=== PATIENT | male | born 1935 | race Caucasian/White ===

== ENCOUNTER 2017-06-14 10:34 | Emergency (ER) | payer OTHER, MEDICARE ==
--- NOTE | ~2017-06-14 | CT71 ---
[facility] A Service of [facility] RADIOLOGY TEXT RESULTS PATIENT: MADDY ARVIZU LOCATION: [facility] : 39 UNIT #: [id number] AGE: [address]: Georgia Hayes SEX: M ORDER DR: [id number] [facility]. [place], [place] [address] [id number] E MR#: [id number] #: [id number] NAME: MADDY ARVIZU : 1935 SEX: M STUDY DATE/TIME: 06/14/2017 11:24 UNIT: [facility] ROOM: STUDY DESCRIPTION: CT Head Wo Contrast Attending Physician: Georgia Hayes P.A.-C. Ordering Physician: Georgia Hayes P.A.-C. Primary Care Physician: No Primary Care Physician MEDICAL IMAGING REPORT This report is preliminary unless electronic signature is present EXAM CT head without contrast INDICATIONS Head injury today. Laceration over right eye, pain right forehead. TECHNIQUE CT head performed without contrast. This CT exam was performed with one or more of the following radiation dose reduction techniques: automatic exposure control, adjustment of mA and/or kV according to patient size, and iterative reconstruction. COMPARISON No comparisons. FINDINGS There is generalized age-appropriate volume loss. There is no hydrocephalus. There is no focal mass lesion. There is no intracranial hemorrhage. There is no acute cortical based infarction. Soft tissue swelling overlying the right orbit. Paranasal sinuses are clear. No acute osseous abnormality. IMPRESSION 1. No acute intracranial abnormality. 2. Small hematoma overlying the right orbit. Dictated by... Chinmay Scanlon M.D. THIS IS AN ELECTRONICALLY VERIFIED REPORT Chinmay Scanlon M.D. at 06/16/2017 7:36 AM ELZBIETA/halley [facility] A Service [facility] RADIOLOGY TEXT RESULTS PATIENT: MADDY ARVIZU LOCATION: [facility] : 37 UNIT #: [id number] AGE: [address]: Georgia Hayes SEX: M ORDER DR: TD: 06/15/2017 12:46 JOB #: [id number] MEDICAL IMAGING REPORT Page 1 of 1 COPY
== END 2017-06-14 13:35 | disposition home or self-care (01) ==
LOC: CED 10:34 → CFTX 10:34
DX: S01.111A Laceration without foreign body of right eyelid and periocular area, initial encounter (principal); S51.811A Laceration without foreign body of right forearm, initial encounter; S61.411A Laceration without foreign body of right hand, initial encounter; S01.81XA Laceration without foreign body of other part of head, initial encounter; S40.211A Abrasion of right shoulder, initial encounter; S80.211A Abrasion, right knee, initial encounter; H11.31 Conjunctival hemorrhage, right eye; I10 Essential (primary) hypertension; M19.90 Unspecified osteoarthritis, unspecified site; Z79.899 Other long term (current) drug therapy; V17.4XXA Pedal cycle driver injured in collision with fixed or stationary object in traffic accident, initial encounter; Y92.009 Unspecified place in unspecified non-institutional (private) residence as the place of occurrence of the external cause
CPT/HCPCS: 29130; 29260; 70450; 90471; 90715; 99284